=== PATIENT | female | born 2000 | race Caucasian/White ===

== ENCOUNTER 2023-08-05 21:16 | Emergency (ER) | payer OTHER, SELFPAY ==
[2023-08-05 21:34] VITALS: BP 122/86; PULSE 82; RESP 18; TEMP 36.3; O2SAT 98; BMI 25.1
--- NOTE | 2023-08-05 22:15 | CRLHL7_ITS ---
For Patients: As a result of the Century Cures Act, medical imaging exams and procedure reports are released immediately into your electronic medical record. You may view this report before your referring provider. If you have questions, please contact your health care provider. INDICATION: Left lower quadrant pain with cramping and bleeding, LMP August 05, 2023, test is negative, no recent TECHNIQUE: Ultrasound pelvis transabdominal and transvaginal for better assessment or to better visualize the endometrium. Real-time sonographic images with spectral and color Doppler imaging of the ovaries were obtained. COMPARISON: None FINDINGS: Uterus: 7.2 x 3.6 x 4.1 cm. Normal echotexture of the myometrium. No masses. Endometrium: Transvaginal imaging was performed to better evaluate the endometrium. 6 mm in thickness. No sign of endometrial mass or fluid. There is no blood flow in the endometrium. Right ovary: 3.6 x 1.7 x 2.4 cm. No ovarian or adnexal masses. Normal arterial blood flow. Left ovary: 3.9 x 2.2 x 1.8 cm. No ovarian or adnexal masses. Normal arterial blood flow. Cul-de-sac: No significant free fluid. IMPRESSION: Unremarkable pelvic ultrasound. Dictated by Orquidea London MD @ 08/05/2023 11:58:45 PM (Electronically Signed)
[2023-08-05] MEDS: IBUPROFEN 600 MG TABLET PO (22:27)
[2023-08-05] MEDS: ONDANSETRON ODT 4 MG TAB PO (22:51)
[2023-08-05 22:57] LABS: Chloride* 100 mmol/L (96-114); Potassium* 3.5 mmol/L (3.6-5.1); Sodium* 140 mmol/L (135-149)
[2023-08-05 22:58] LABS: Basophils Absolute Auto 0.02 K/uL (0.00-0.30); Basophils Percent Auto 0.3 % (0.0-3.0); Eosinophils Absolute Auto 0.11 K/uL (0.00-0.50); Eosinophils Percent Auto 1.7 % (0.0-7.0); Hematocrit 40.5 % (33.0-51.0); Hemoglobin* 13.2 gm/dL (12.0-16.0); Immature Granulocytes Abs Auto 0.04 K/uL (0.00-0.30); Immature Granulocytes Pct Auto 0.6 %; Lymphocytes Absolute Auto 2.43 K/uL (0.90-2.90); Lymphocytes Percent Auto 36.5 % (20-44); Mean Corpuscular HGB Conc 33 gm/dL (32-36); Mean Corpuscular Hemoglobin 30 pg (26-34); Mean Corpuscular Volume 93 fL (80-100); Monocytes Percent Auto 6.8 % (0.0-11.0); Neutrophils Percent Auto 54.1 % (42.0-72.0); Platelet Count* 293 K/uL (140-440); RDW Coefficient of Variation % 11.9 % (11.5-15.5); Red Blood Count 4.38 m/uL (4.00-5.20); White Blood Count* 6.65 K/uL (4.50-11.00)
[2023-08-05 23:00] LABS: Anion Gap 15 mEq/L (7-15); Blood Urea Nitrogen* 17 mg/dL (5-24); Carbon Dioxide* 25 mmol/L (20-32); Creatinine* 0.7 mg/dL (0.5-1.5); Est. Creatinine Clearance* 125.01; Estimated Glomerular Filt Rate 124 ml/min; Glucose* 97 mg/dL (60-115)
[2023-08-05 23:01] LABS: Calcium* 8.9 mg/dL (8.4-10.6)
[2023-08-05 23:04] LABS: Slide Review Reflex No
[2023-08-05 23:17] LABS: HCG Qualitative Serum* Negative (Negative)
--- NOTE | 2023-08-05 23:34 | ED_ITS ---
HPI - General Adult General Date Seen: 08/05/23 Chief complaint: Vaginal Bleeding Stated complaint: blood loss due to period, dizzy Time Seen by Provider: 08/05/23 21:36 History of Present Illness HPI narrative: This is a 23-year-old female presenting to the ER today for vaginal bleeding and pelvic cramping. She reports that she has a long history of heavy bleeding and bad periods. She normally follows with a cable television installer through the [facility] in [facility]. She says her cable television installer name is Dr. Grey. Over the past year she has been on control pills, implantable control, IUD but has had complications that with each of those so has stopped all of them. She had her IUD taken out about 8 months ago. Since then she has had fairly regular periods but every couple of weeks. Her current menstrual cycle Began yesterday evening. Her pencil cycle is typically heaviest on day 2. Today it is much heavier than normal for her. She has had to change her maxi pad 9 times today. She is feeling lightheaded and dizzy. She is worried about blood loss. Bleeding is but had prior moderately red with some clots. No bloody stools. No urinary symptoms. She is having pelvic cramping, more on the left than on the right. No fevers. Related Data Allergies Allergy/AdvReac Type Severity Reaction Status Date / Time No Known Drug Allergies Allergy Verified 08/05/23 21:33 [facility] Social History Do you use any of these nicotine containing products: None Non-prescribed substance use: denies use Exam Narrative: Exam Narrative: Constitutional: Appears well-developed and well-nourished. Alert. Conversant. Non toxic. HENT: Head: Atraumatic. Nose: Nose normal. Mouth/Throat: Oral mucosa is clear and moist. no trismus. Pharynx normal. Tonsils symmetric. No tonsillar enlargement, erythema, or exudate. Eyes: Conjunctivae normal. EOM normal. Pupils equal, round, and reactive to light. No scleral icterus. Neck: Normal range of motion. Neck supple. No tracheal deviation present. Cardiovascular: Normal rate, regular rhythm. No gallop. No friction rub. No murmur heard. Symmetric radial artery pulses Pulmonary/Chest: Effort normal. No stridor. No respiratory distress. No wheezes. No rales. No rhonchi . No tenderness. Abdominal: Soft. Bowel sounds normal. No distension. No mass. LLQ> suprap ubic/RLQ tenderness. No rebound. No guarding. No CVA tender Musculoskeletal: RUE: Normal range of motion. No tenderness. No deformity LUE: Normal range of motion. No tenderness. No deformity RLE: Normal range of motion. No edema. No tenderness. No deformity LLE: Normal range of motion. No edema. No tenderness. No deformity Neurological: Alert and oriented to person, place, and time. Normal strength. CN II-VII intact. No sensory deficit. GCS eye subscore is 4. GCS verbal subscore is 5. GCS motor subscore is 6. Normal coordination Skin: Skin is warm and dry. No rash noted. No pallor. Normal capillary refill. Psychiatric: Normal mood. Normal affect. Const: Vital Signs, click to edit/add: Vital Signs - 24 hr 08/05/23 21:34 Temperature 97.4 F L Pulse Rate [Pulse Oximeter] 82 Respiratory Rate 18 Blood Pressure [[facility] Upper Arm] 122/86 Pulse Oximetry 98 Oxygen Delivery Me thod Room Air Course Course ED Course: Recheck. Doing well. Hemodynamically stable. Nausea improved. Symptoms settling down. Discussed results of labs and pelvic ultrasound with the patient and her boyfriend. Vital Signs Vital signs: Initial Vital Signs Temperature 97.4 F L 08/05/23 21:34 Temperature Source Temporal Artery Scan 08/05/23 21:34 Pulse Rate 82 08/05/23 21:34 Respiratory Rate 18 08/05/23 21:34 Blood Pressure 122/86 08/05/23 21:34 Blood Pressure Mean 98 08/05/23 21:34 Pulse Oximetry 98 08/05/23 21:34 Oxygen Delivery Method Room Air 08/05/23 21:34 Vital Signs Temperature 97.4 F L 08/05/23 21:34 Pulse Rate 82 08/05/23 21:34 Respiratory Rate 18 08/05/23 21:34 Blood Pressure 122/86 08/05/23 21:34 Pulse Oximetry 98 08/05/23 21:34 Oxygen Delivery Method Room Air 08/05/23 21:34 Temperature 97.4 F L 08/05/23 21:34 Pulse Rate 82 08/05/23 21:34 Respiratory Rate 18 08/05/23 21:34 Blood Pressure 122/86 08/05/23 21:34 Pulse Oximetry 98 08/05/23 21:34 Oxygen Delivery Method Room Air 08/05/23 21:34 Medical Decision Making MDM Narrative Medical decision making narrative: This is a pleasant 23-year-old female presenting to the ER today with vaginal bleeding and pelvic cramping. She is currently on her menstrual cycle which began yesterday. She has a history of heavy/painful menstrual cycles dating back for several years but today's bleeding and cramping are heavier than most of her other periods. She reports that she has a long history of trying to treat these heavy periods working with her cable television installer through the [employer]. She has failed therapy with OCPs, implantable control, IUD so is currently on no treatment for the past 8 months. Fortunately she is hemodynamically stable. test is negative. Labs show normal hemoglobin at 13.2. Platelet count is normal. She is not anticoagulated. Pelvic ultrasound shows a structurally normal uterus and ovaries. No evidence for any endometrial thickening. No ovarian cyst or torsion. Patient's symptoms were treated with meds here in the ER and she is now feeling better. She is comfortable discharging home with supportive care. Discussed options for treating her bleeding including another attempted oral control pills. We decided to go ahead with treatment for with ibuprofen 400-600 mg q.6 hours for the next 2-3 days for ?prostate gland and affect and pain relief. Prescriptions for Zofran through [facility] prescribed. She will follow-up with her cable television installer for recheck as soon as possible. Precautions for return to the ER reviewed. Questions answered. Lab Data Labs: Lab Results 08/05/23 08/05/23 Range/Units 22:03 22:30 WBC 6.65 (4.50-11.00) K/uL RBC 4.38 (4.00-5.20) m/uL Hgb 13.2 (12.0-16.0) gm/dL Hct 40.5 (33.0-51.0) % MCV 93 (80-100) fL MCH 30 (26-34) pg MCHC 33 (32-36) gm/dL RDW Coeff of Emily 11.9 (11.5-15.5) % Plt Count 293 (140-440) K/uL Neut % (Auto) 54.1 (42.0-72.0) % Lymph % (Auto) 36.5 (20-44) % Barber % (Auto) 6.8 (0.0-11.0) % Eos % (Auto) 1.7 (0.0-7.0) % Baso % (Auto) 0.3 (0.0-3.0) % Neut # (Auto) 3.60 (1.7-7.0) K/uL Lymph # (Auto) 2.43 (0.90-2.90) K/uL Barber # (Auto) 0.50 (0.00-0.90) K/UL Eos # (Auto) 0.11 (0.00-0.50) K/uL Baso # (Auto) 0.02 (0.00-0.30) K/uL Abs Immat Gran (auto) 0.04 (0.00-0.30) K/uL Imm/Tot Granulo (auto) 0.6 % Sodium 140 (135-149) mmol/L Potassium 3.5 L (3.6-5.1) mmol/L Chloride 100 (96-114) mmol/L Carbon Dioxide 25 (20-32) mmol/L Anion Gap 15 (7-15) mEq/L BUN 17 (5-24) mg/dL Creatinine 0.7 (0.5-1.5) mg/dL Estimated Creat Clear 125.01 Estimated GFR 124 ml/min Glucose 97 (60-115) mg/dL Calcium 8.9 (8.4-10.6) mg/dL HCG, Qual Negative (Negative) Imaging Data Pelvic ultrasound: Attestation: I have reviewed the pertinent imaging results. Radiologist's impression: IMPRESSION: Unremarkable pelvic ultrasound. Discharge Plan Discharge Clinical Impression: Pelvic cramping, Vaginal bleeding Patient Disposition: Home, Self-Care Condition: Stable Instructions: Abnormal (Dysfunctional) Uterine Bleeding (ED), Dysmenorrhea (ED), Pelvic Pain (ED) Additional Instructions: Use the Zofran for nausea if needed. Use ibuprofen 400-600 mg every 6 hours for the next 2-3 days to help reduce her bleeding and treat cramping. Please follow-up with for your cable television installer as soon as possible. As we discussed, please come back to the ER right away if you have heavier bleeding, lightheadedness, fever, worsening pain, or if you have any concerns. Follow Up/Referrals: Provider,Not a Local [Primary Care Provider] - Stand Alone Forms: [facility] Info Instructions
== END 2023-08-06 01:15 | disposition home or self-care (01) ==
PROVIDERS: Emergency Provider Emergency Medicine
DX: R10.2 Pelvic and perineal pain (principal); N94.6 Dysmenorrhea, unspecified
CPT/HCPCS: 36415; 76830; 76856; 80048; 84703; 85025; 93976; 99284; A9270

== ENCOUNTER 2024-10-19 09:58 | Outpatient (CLI) | payer OTHER, SELFPAY | END 2024-10-19 09:59 | disposition home or self-care (01) | LOC: NFLDUCREF 09:59 | PROVIDERS: Visit Provider Physician Assistant | DX: R82.90 Unspecified abnormal findings in urine (principal) | CPT/HCPCS: 87086 ==